=== PATIENT | female | born 1970 | race Caucasian/White ===

== ENCOUNTER 2022-11-12 01:48 | Observation (INO) ==
[2022-11-12] MEDS ORDERED: ONDANSETRON INJ 2 MG/ML 2 ML VIAL IV STA ×2 (02:20→04:47)
[2022-11-12] MEDS ORDERED: FAMOTIDINE 20MG/5ML IV PUSH IV ONE (02:20)
[2022-11-12] MEDS ORDERED: FAMOTIDINE 20 MG in SYRINGE 3 ML IV ONE (02:20)
[2022-11-12] MEDS: SODIUM CHLORIDE 0.9% 1000ML 1,000 ML IV SCH ×2 (02:31→07:28)
[2022-11-12 02:33] LABS: Basophils # (auto) 0.03 K/uL (0-0.2); Basophils % (auto) 0.4 %; Eosinophils # (auto) 0.02 K/uL (0-0.50); Eosinophils % (auto) 0.3 %; Hematocrit (blood only) 42.4 % (37.0-47.0); Hemoglobin 14.5 g/dl (12.0-16.0); Immature Granulocytes # (auto) 0.01 K/uL (0.01-0.20); Immature Granulocytes % (auto) 0.1 %; Lymphocytes # (auto) 1.63 K/uL (1.2-3.4); Lymphocytes % (auto) 23.3 %; Mean Corpuscular Hgb Conc 34.2 g/dL (32.0-36.0); Mean Corpuscular Volume 87.6 fL (80.0-100.0); Mean Platelet Volume 9.9 fL (9.4-12.4); Monocytes # (auto) 0.51 K/uL (0.11-0.59); Monocytes % (auto) 7.3 %; Neutrophils # (auto) 4.79 K/uL (1.40-6.50); Neutrophils % (auto) 68.6 %; Platelet Count 319 K/uL (130-400); RDW Coefficient of Variation 12.2 % (11.5-14.5); RDW Standard Deviation 39.1 fL (36.4-46.3); Red Blood Count 4.84 M/uL (4.20-5.40); White Blood Count 6.99 K/ul (4.8-10.8)
[2022-11-12] MEDS ORDERED: FAMOTIDINE 20MG IV PUSH 20 MG/5 ML SYR IV STA (02:59)
[2022-11-12] MEDS ORDERED: ACETAMINOPHEN 1,000 MG/100 ML VIAL IV STA (02:59)
[2022-11-12] MEDS ORDERED: fentaNYL citrate 100 MCG/2 ML VIAL IV STA (02:59)
[2022-11-12 03:03] LABS: Troponin I High Sensitivity 17.9 pg/ml (0-14)
[2022-11-12 03:08] LABS: Thyroid Stimulating Hormone 5.507 uIu/ml (0.300-4.500)
[2022-11-12 03:11] LABS: Albumin Level 4.9 gm/dl (3.4-5.0); Bilirubin,Total 0.8 mg/dl (0.2-1.0); Calcium 9.9 mg/dl (8.5-10.1); Potassium 3.3 mmol/L (3.5-5.1)
[2022-11-12 03:17] LABS: Albumin Globulin Ratio 1.2 (0.9-2); BUN Creatinine Ratio 14.3 (10-20); Creatinine Clr Calc Pharmacy 77.5 ml/min; Est GFR (African American) 103.6 ml/min; Est GFR (Non-African American) 89.4 ml/min; Globulin 4.2 gm/dl (2.5-4.0); Total Protein 9.1 gm/dl (6.0-8.3)
[2022-11-12] MEDS ORDERED: POTASSIUM CHLORIDE CRTAB 20 MEQ TABCR PO STA (03:21)
[2022-11-12 03:54] LABS: T4 Free Thyroxine 0.88 ng/dl (0.61-1.60)
[2022-11-12] MEDS ORDERED: LABETALOL HCL IV 5 MG/ML 20ML IV STA (04:10)
--- NOTE | 2022-11-12 04:10 | Emergency Department Note ---
Impression & Plan Chest pain, Nausea & vomiting, Elevated troponin, Abnormal ECG, Hypertension ED Provider Note ED Provider Note NAME: MAIN MARTINEZ AGE:52 SEX: Female : 1970 ARRIVES VIA: Private vehicle INFORMANT: Patient ED PROVIDER(s): Lucila Bishop DO CHIEF COMPLAINT: Nausea and vomiting, chest pain HPI: This is a 52-year-old female presents emergency department with concern for nausea and vomiting as well as chest pain. Patient states symptoms have been going on intermittently over the course of the last month. She states she has not been able to pinpoint any pattern to the nausea or vomiting. She states she does not vomit every time she gets nauseated. No recent change in diet, no new medications, no known sick contacts. She states yesterday for nausea vomiting seem more persistent and she also had accompanying diarrhea. No black or bloody stools. Patient also notes she has had intermittent chest heaviness/pain. She states the pain is nonradiating. She states she notices the pain with exertion and activity. She denies any coming shortness of breath, diaphoresis, or dizziness. No prior heart history. Patient is a remote smoker. No family history of young onset CAD. Patient currently does not have a family doctor. No prior cardiac evaluation. Patient denies any abdominal pain at this time. She did take ibuprofen prior to arrival. PAST MEDICAL HISTORY:See Below PAST SURGICAL HISTORY:See Below FAMILY HISTORY:See Below SOCIAL HISTORY:See Below HOME MEDICATIONS:See Below ALLERGIES:See Below VITALS:See Below PHYSICAL EXAMINATION: GENERAL: alert, well appearing, well nourished, no distress, non-toxic EYE EXAM: normal conjunctiva, PERRL and EOM's grossly intact OROPHARYNX: no exudate, no erythema, lips, buccal mucosa, and tongue normal and mucous membranes are moist NECK: supple, no nuchal rigidity, no adenopathy, non-tender LUNGS: Clear to auscultation. Normal chest wall mechanics, no w/r/r HEART: no murmurs, S1 normal and S2 normal ABDOMEN: abdomen soft, non-tender, normo-active bowel sounds, no masses, no rebound or guarding. BACK: Back is symmetrical on inspection and there is no deformity, no midline tenderness, no CVA tenderness. SKIN: no rashes, petechiae, orbruising UPPER EXTREMITIES: upper extremities are grossly normal. FROM, nml pulses b/l. LOWER EXTREMITIES: No pitting edema. FROM, nml pulses b/l. NEURO EXAM: Normal sensorium, cranial nerves II-XII grossly intact, normal speech, no facial droop,nogross weakness of arms, no gross weakness of legs. Gross sensation intact. No ataxia. Vital Signs: reviewed and remarkable Differential Diagnosis: MEDICAL DECISION MAKING: This is a 52-year-old female who presents to the emergency department with concerning story for 1 month of intermittent nausea and vomiting and chest pain. Patient had chest pain at bedside and did feel persistently nauseated. Labs drawn and sent, IV established, EKG performed and interpreted by me and was concerning for subtle ST depression and T wave inversions. Chest x-ray abdominal x-ray performed and interpreted by me additionally without any obvious pathology. Patient given IV Zofran, IV Tylenol, IV fentanyl, and IV Pepcid with improvement in her symptoms. Repeat EKG still showed persistent ST depression and T wave inversions and patient's troponin mildly elevated. Mild hypokalemia was noted and this was repleted at bedside. Patient had no abdominal pain on initial and repeat exams. No ectopy or dysrhythmia noted on telemetry. I discussed all results with patient at bedside as well as my concern for her abnormal EKG with no priors for comparison and mildly elevated troponin. Patient does admit that chest heaviness/pressure she is felt has been exertional. Patient is a reformed smoker, no other family history of early onset CAD. Due to concerning changes and history, I discussed the case with hospitalist for additional inpatient evaluation and management. Patient was aware of all results and verbalized understanding. She was in agreement with the plan. Patient was also noted to be hypertensive with persistent borderline tachycardia, even when her symptoms had resolved. Patient given I will review the labetalol with improvement. Consultation(s): 0435: Discussed with Dr. Fountain for admission. ER Treatment Provided: See below Diagnostics Interpreted By Me: -ECG: Normal sinus at 98, normal axis, normal intervals, ST depression noted in 1, aVL, V5 and V6, inverted T waves noted in 3, aVF; repeat EKG is normal sinus rhythm at 87, normal QRS and QTc, normal axis, similar ST depressions and inverted T waves again noted. -Cardiac Monitoring: An order was placed for continuous cardiac monitoring. The monitor shows a rate of 96 with normal sinus rhythm. -Laboratory studies: As stated above and show below. -Imaging studies: X-ray:Chest: A single view study of the chest was reviewed and was negative for cardiomegaly, focal infiltrate, effusion, pulmonary edema, or wide mediastinum. KUB: no obvious SBO or free air Triage Nursing Note Reviewed Prior/Outside Records Reviewed Procedures: [] Critical Care: [] Past Med/Surg History Social History Smoking Status: Never smoker Hx Alcohol Use: No Hx Substance Use: No Preferred Language: [place] Wel[employer] Apprentice Required: No Beliefs That Will Affect Care: None Current Living Situation: Spouse Other Information That Helps Us Care for You: No Feels Safe at Home: Yes Safety Concerns: Feels Safe At This Time Assistive Devices: None Allergies Allergies Allergy/AdvReac Type Severity Reaction Status Date / Time No Known Allergies Allergy Verified 11/12/22 02:10 Home Meds Home Medications Medication Instructions Recorded Confirmed ibuprofen 200 mg tablet (Motrin IB) 400 mg PO DIRECTED PRN Pain 11/12/22 11/12/22 Previous Rx's Medication Instructions Recorded aspirin 81 mg tablet,delayed 81 mg PO QAM #30 tabs 11/12/22 release buspirone 5 mg tablet 5 mg PO BID #60 tabs 11/12/22 carvedilol 3.125 mg tablet 3.125 mg PO BID #60 tabs 11/12/22 lisinopril 5 mg tablet (Zestril) 5 mg PO QAM #30 tabs 11/12/22 Results & Data (ED) Vital Signs Vital Signs - 24 hr 11/12/22 01:54 11/12/22 02:04 11/12/22 03:00 Temperature 36.3 C L Temperature Source Temporal Artery Scan Pulse Rate 116 H 96 H 87 Pulse Rate from SpO2 Sensor 89 Respiratory Rate 18 14 Respiratory Effort / Characteristics Non-Labored Spontaneous Respiratory Depth Normal Respiratory Pattern Regular Blood Pressure 188/103 H 174/102 H Blood Pressure Mean 131 126 Blood Pressure Position Sitting Pulse Oximetry 96 97 Oxygen Delivery Method Room Air Sepsis Recent Fever Within 48 Hours No Sepsis New/Unexplained Change in Mental Status N/A Sepsis Action Taken by Nursing No Action Required 11/12/22 03:15 11/12/22 03:30 11/12/22 04:00 Temperature Temperature Source Pulse Rate 81 89 101 H Pulse Rate from SpO2 Sensor 82 88 100 H Respiratory Rate 12 12 14 Respiratory Effort / Characteristics Respiratory Depth Respiratory Pattern Blood Pressure 158/105 H 148/101 H 180/112 H Blood Pressure Mean 122 116 134 Blood Pressure Position Pulse Oximetry 96 97 98 Oxygen Delivery Method Sepsis Recent Fever Within 48 Hours Sepsis New/Unexplained Change in Mental Status Sepsis Action Taken by Nursing 11/12/22 04:30 11/12/22 04:45 11/12/22 05:00 Temperature Temperature Source Pulse Rate 79 Pulse Rate from SpO2 Sensor 93 H 79 Respiratory Rate 14 Respiratory Effort / Characteristics Respiratory Depth Respiratory Pattern Blood Pressure 182/112 H 138/87 137/96 Blood Pressure Mean 135 104 109 Blood Pressure Position Pulse Oximetry 98 96 Oxygen Delivery Method Sepsis Recent Fever Within 48 Hours Sepsis New/Unexplained Change in Mental Status Sepsis Action Taken by Nursing 11/12/22 05:00 11/12/22 05:15 11/12/22 05:15 Temperature Temperature Source Pulse Rate 77 77 Pulse Rate from SpO2 Sensor 77 79 Respiratory Rate 17 12 Respiratory Effort / Characteristics Respiratory Depth Respiratory Pattern Blood Pressure 149/99 H Blood Pressure Mean 115 Blood Pressure Position Pulse Oximetry 97 96 Oxygen Delivery Method Sepsis Recent Fever Within 48 Hours Sepsis New/Unexplained Change in Mental Status Sepsis Action Taken by Nursing Laboratory Data 11/12/22 02:10 11/12/22 02:10 Lab Results 11/12/22 11/12/22 11/12/22 Range/Units 02:10 02:10 02:10 WBC 6.99 (4.8-10.8) K/ul RBC 4.84 (4.20-5.40) M/uL Hgb 14.5 (12.0-16.0) g/dl Hct 42.4 (37.0-47.0) % MCV 87.6 (80.0-100.0) fL MCH 30.0 (25.0-34.0) pg MCHC 34.2 (32.0-36.0) g/dL RDW Std Deviation 39.1 (36.4-46.3) fL RDW Coeff of David 12.2 (11.5-14.5) % Plt Count 319 (130-400) K/uL MPV 9.9 (9.4-12.4) fL Immature Gran % (Auto) 0.1 % Neut % (Auto) 68.6 % Lymph % (Auto) 23.3 % [place] % (Auto) 7.3 % Eos % (Auto) 0.3 % Baso % (Auto) 0.4 % Neut # (Auto) 4.79 (1.40-6.50) K/uL Lymph # (Auto) 1.63 (1.2-3.4) K/uL [place] # (Auto) 0.51 (0.11-0.59) K/uL Eos # (Auto) 0.02 (0-0.50) K/uL Baso # (Auto) 0.03 (0-0.2) K/uL Immature Gran # (Auto) 0.01 (0.01-0.20) K/uL Sodium 137 (136-145) mmol/L Potassium 3.3 L (3.5-5.1) mmol/L Chloride 103 (98-107) mmol/L Carbon Dioxide 23 (21-32) mmol/L Anion Gap 11 (3-11) BUN 11 (6-23) mg/dl Creatinine 0.77 (0.6-1.2) mg/dl Est Cr Clr Drug Dosing 77.5 ml/min Est GFR ( Amer) 103.6 ml/min Est GFR (Non-Af Amer) 89.4 ml/min BUN/Creatinine Ratio 14.3 (10-20) Glucose 183 H (70-99(Fasting)) mg/dl Calcium 9.9 (8.5-10.1) mg/dl Magnesium 2.0 (1.7-2.4) mg/dl Total Bilirubin 0.8 (0.2-1.0) mg/dl AST 15 (13-39) U/L ALT 14 (7-52) U/L Alkaline Phosphatase 87 (34-104) U/L Troponin I High Sens 17.9 H (0-14) pg/ml Total Protein 9.1 H (6.0-8.3) gm/dl Albumin 4.9 (3.4-5.0) gm/dl Globulin 4.2 H (2.5-4.0) gm/dl Albumin/Globulin Ratio 1.2 (0.9-2) Lipase 14 (11-82) U/L TSH 5.507 H (0.300-4.500) uIu/ml Free T4 0.88 (0.61-1.60) ng/dl SARS-CoV-2 (PCR) (Negative) Influenza Type A (PCR) (Neg) Influenza Type B (PCR) (Neg) RSV (RT-PCR) (Neg) 11/12/22 Range/Units 04:20 WBC (4.8-10.8) K/ul RBC (4.20-5.40) M/uL Hgb (12.0-16.0) g/dl Hct (37.0-47.0) % MCV (80.0-100.0) fL MCH (25.0-34.0) pg MCHC (32.0-36.0) g/dL RDW Std Deviation (36.4-46.3) fL RDW Coeff of David (11.5-14.5) % Plt Count (130-400) K/uL MPV (9.4-12.4) fL Immature Gran % (Auto) % Neut % (Auto) % Lymph % (Auto) % [place] % (Auto) % Eos % (Auto) % Baso % (Auto) % Neut # (Auto) (1.40-6.50) K/uL Lymph # (Auto) (1.2-3.4) K/uL [place] # (Auto) (0.11-0.59) K/uL Eos # (Auto) (0-0.50) K/uL Baso # (Auto) (0-0.2) K/uL Immature Gran # (Auto) (0.01-0.20) K/uL Sodium (136-145) mmol/L Potassium (3.5-5.1) mmol/L Chloride (98-107) mmol/L Carbon Dioxide (21-32) mmol/L Anion Gap (3-11) BUN (6-23) mg/dl Creatinine (0.6-1.2) mg/dl Est Cr Clr Drug Dosing ml/min Est GFR ( Amer) ml/min Est GFR (Non-Af Amer) ml/min BUN/Creatinine Ratio (10-20) Glucose (70-99(Fasting)) mg/dl Calcium (8.5-10.1) mg/dl Magnesium (1.7-2.4) mg/dl Total Bilirubin (0.2-1.0) mg/dl AST (13-39) U/L ALT (7-52) U/L Alkaline Phosphatase (34-104) U/L Troponin I High Sens (0-14) pg/ml Total Protein (6.0-8.3) gm/dl Albumin (3.4-5.0) gm/dl Globulin (2.5-4.0) gm/dl Albumin/Globulin Ratio (0.9-2) Lipase (11-82) U/L TSH (0.300-4.500) uIu/ml Free T4 (0.61-1.60) ng/dl SARS-CoV-2 (PCR) NEGATIVE (Negative) Influenza Type A (PCR) Negative (Neg) Influenza Type B (PCR) Negative (Neg) RSV (RT-PCR) Negative (Neg) Administered Medications Discontinued Medications Aspirin (Aspirin 81 Mg Ectab) 81 mg PO QAM [facility] Stop: 12/12/22 09:59 Last Admin: 11/12/22 11:56 Dose: 81 mg Documented By: SO Atropine Sulfate (Atropine Sulfate 0.1 Mg/Ml 10ml Syr) Confirm Administered Dose 2 mg IV .STK-MED ONE Stop: 11/12/22 10:43 Last Admin: 11/12/22 12:35 Dose: Not Given Documented By: VÍCTOR Dobutamine HCl (Dobutamine Hcl 12.5 Mg/Ml 20 Ml Vial) Confirm Administered Dose 250 mg IV .STK-MED ONE Stop: 11/12/22 10:44 Last Admin: 11/12/22 12:35 Dose: 1 dose Documented By: VÍCTOR Famotidine (Famotidine 20mg/5ml Iv Push) 20 mg IV NOW ONE Stop: 11/12/22 02:21 Last Admin: 11/12/22 02:37 Dose: 20 mg Documented By: JACQUE Fentanyl Citrate (Fentanyl Citrate 100 Mcg/2 Ml Vial) 50 mcg IV NOW STA Stop: 11/12/22 03:00 Last Admin: 11/12/22 03:08 Dose: 50 mcg Documented By: JAGDEEP Sodium Chloride (Nss 1000ml) 1,000 mls @ 250 mls/hr IV .Q4H MARY Stop: 12/12/22 02:29 Last Admin: 11/12/22 07:28 Dose: Not Given Documented By: Infusion: 11/12/22 06:51 Dose: 0 mls/hr Documented By: Admin: 11/12/22 02:31 Dose: 250 mls/hr Documented By: JACQUE Acetaminophen (Ofirmev) 1,000 mg in 100 mls @ 400 mls/hr IV NOW STA Stop: 11/12/22 03:13 Last Infusion: 11/12/22 03:43 Dose: 0 mls/hr Documented By: Admin: 11/12/22 03:08 Dose: 400 mls/hr Documented By: JAGDEEP Famotidine (Pepcid 20mg Iv Push) 20 mg in 5 mls @ 2.5 mls/min IV NOW STA Stop: 11/12/22 03:00 Last Admin: 11/12/22 03:08 Dose: Not Given Documented By: JAGDEEP Sodium Chloride (Nss 1000ml) 1,000 mls @ 80 mls/hr IV .[id number] [facility] Stop: 11/12/22 19:55 Last Admin: 11/12/22 08:17 Dose: 80 mls/hr Documented By: SO Labetalol HCl (Labetalol Hcl Iv 5 Mg/Ml 20ml) 10 mg IV NOW STA Stop: 11/12/22 04:11 Last Admin: 11/12/22 04:38 Dose: 10 mg Documented By: JAGDEEP Co-signed By: FALLON Lisinopril (L[facility]opril 5 Mg Tab) [facility] [place] Stop: 12/12/22 09:59 Last Admin: 11/12/22 11:56 Dose: 5 mg Documented By: SO Metoprolol Tartrate (Metoprolol Tartrate 1 Mg/Ml Vial) Confirm Administered Dose 10 mg IV .STK-MED [facility] Stop: 11/12/22 10:44 Last Admin: 11/12/22 12:36 Dose: 5 mg Documented By: VÍCTOR Ondansetron HCl (Ondansetron Inj 2 Mg/Ml 2 Ml Vial) 4 mg IV NOW STA Stop: 11/12/22 02:21 Last Admin: 11/12/22 02:31 Dose: 4 mg Documented By: JACQUE Ondansetron HCl (Ondansetron Inj 2 Mg/Ml 2 Ml Vial) 4 mg IV NOW STA Stop: 11/12/22 04:48 Last Admin: 11/12/22 04:54 Dose: 4 mg Documented By: JAGDEEP Potassium Chloride (Potassium Chloride Crtab 20 Meq Tabcr) 40 meq PO NOW STA Stop: 11/12/22 03:22 Last Admin: 11/12/22 03:52 Dose: 40 meq Documented By: BS Discharge Plan Visit Data Chief Complaint: Vomiting Stated Complaint: HEAVINESS ON CHEST,COUGH,VOMITING,DIARRHEA ED Provider: Lucila Bishop Discharge Problem: Chest pain, Nausea & vomiting, Elevated troponin, Abnormal ECG, Hypertension Patient Disposition: Admitted As Inpatient Discharge Instructions Interventions: ED Discharge Assessment Last Done: 11/12/22 07:43
[2022-11-12 05:20] LABS: Influenza A virus by PCR Negative (Neg); Influenza B virus by PCR Negative (Neg); RSV by PCR Negative (Neg); SARS CoV2 RNA(COVID-19) Ceph NEGATIVE (Negative)
--- NOTE | 2022-11-12 07:09 | History and Physical Report ---
DATE OF ADMISSION: 11/12/2022. CHIEF COMPLAINT: Nausea and also chest pain. HISTORY OF PRESENT ILLNESS: A 52-year-old female with no significant past medical history who presents with chest pain going on since last 1 month. The chest pain comes in the morning when she wakes up, going to work, and by afternoon subsides and again some days also it comes in the nighttime. No radiation, pressure-like feeling, moderate in severity. No sweating, no shortness of breath.Pain is associated with nausea. Last Wednesday night she had two to three episodes of diarrhea. Diarrhea seems to be improving. She still has some mild chest discomfort currently. Denies any headache. No blurred visions, no earache, no runny nose, no sore throat, no cough, no fevers, no difficulty swallowing. No abdominal pain. Normal bladder movements. No swelling in the legs. ALLERGIES: No known drug allergies. PAST MEDICAL HISTORY: No significant past medical history. PAST SURGICAL HISTORY: Ligation of the tubes. MEDICATIONS: None. FAMILY HISTORY: Significant for mother had heart attack at age of 65; mom and dad had diabetes. SOCIAL HISTORY: Quit smoking 30 years ago, smoked for a couple of years. Alcohol occasional. REVIEW OF SYSTEMS: As per HPI. Rest of review of systems is negative. PHYSICAL EXAMINATION: GENERAL: The patient is of moderate build, not in acute distress. VITAL SIGNS: Temperature 36.3, pulse 79, respiratory rate 14, blood pressure 138/87, when she came in blood pressure was 188/103, oxygen 96% on room air. HEENT: Pupils equal, round and reactive to light. Oral mucosa moist. NECK: No JVD. No neck masses. CARDIOVASCULAR: S1 and S2 heard. Regular rate and rhythm. No murmur, no gallop. RESPIRATORY SYSTEM: Normal AP diameter. No accessory muscle use. No wheezing or crackles. ABDOMEN: Soft, bowel sounds present, nontender, no distention. CENTRAL NERVOUS SYSTEM: Cranial nerves II through XII grossly intact, nonfocal. EXTREMITIES: No edema, no erythema. LABORATORY DATA: WBC 6.9, hemoglobin 14.5, hematocrit 42.4, platelets 319. Sodium 137, potassium 3.3, chloride 103, bicarbonate 23, BUN 11, creatinine 0.7, serum glucose 183, calcium 9.9, magnesium 2, total bilirubin 0.8, AST 15, ALT 14, alkaline phosphatase 87. Troponin I high sensitivity 17.9, lipase 14, TSH 5.5, free T4 of 0.8. SARS-CoV-2 PCR negative. Influenza A and B PCR negative. RSV PCR negative. IMAGING DATA: Chest and abdominal x-ray results are pending. EKG: Shows normal sinus rhythm at a rate of 98, possible left atrial enlargement, nonspecific ST changes.ST depressions in leads V5 and V6. ASSESSMENT AND PLAN: This is a 52-year-old female who presents with chest pain, also nausea, vomiting, diarrhea. 1. Chest pain: Going on for last 1 month on and off. Mild elevation of troponin to 17.9. EKG done showed ST depression in leads V5, V6. Will monitor the serial cardiac enzymes, repeat EKG. Will keep her n.p.o. Follow the echocardiogram. Monitor in the tele floor. Consult cardiology for further recommendations. 2. Nausea, vomiting, diarrhea: Diarrhea has seemed to improve. Possibly gastroenteritis. Getting gentle fluids. Will monitor. 3. Hypertension: Could be situational. When she came in, blood pressure was high. Received a dose of labetalol. Currently seems okay. Will place on Coreg 3.125 p.o. b.i.d. p.r.n. Will follow the echocardiogram. If persistently high, may need antihypertensives at the time of discharge. 4. Hyperglycemia: Glucose of 183. Will follow the HbA1c levels. Will also follow the lipid panel. 5. Deep venous thrombosis prophylaxis: Sequential compression devices for now. DISPOSITION: Observation in [facility]. PT/OT prior to discharge. Social service to help with discharge planning. Job ID: [id number] [facility]
[2022-11-12] MEDS ORDERED: ACETAMINOPHEN 325 MG TAB PO PRN (07:26)
[2022-11-12] MEDS ORDERED: NITROGLYCERIN SL 0.4 MG/TAB TAB SL PRN (07:26)
[2022-11-12] MEDS ORDERED: ONDANSETRON INJ 2 MG/ML 2 ML VIAL IV PRN (07:26)
[2022-11-12] MEDS ORDERED: SODIUM CHLORIDE 0.9% 1000ML 1,000 ML IV SCH (07:26)
[2022-11-12] MEDS ORDERED: POLYETHYLENE (MIRALAX) 17 GM PACK PO PRN (07:26)
[2022-11-12] MEDS ORDERED: carvediloL 3.125 MG TAB PO PRN (07:26)
--- NOTE | 2022-11-12 07:27 | XRay Report ---
XR abdomen 2V w PA chest HISTORY: 52 years-old Female n/v, chest pain . Nodular and vomiting with chest pain COMPARISON: None TECHNIQUE: PA view of the chest with erect and supine views of the abdomen FINDINGS: Cardiomediastinal and hilar silhouettes are within normal limits. No pneumothorax, pleural effusion, airspace consolidation or pulmonary edema. Bones of the chest appear grossly intact. No urolith identified. Nonobstructive bowel gas pattern. No pneumatosis or pneumoperitoneum. IMPRESSION: 1. No acute processes of the chest. 2. Nonobstructive bowel gas pattern. ACT 112: Negative or not required by law. The above report was generated using voice recognition software. It may contain grammatical, syntax o r spelling errors. Electronically signed by: Haris Gleason M.D. 11/12/2022 7:26 AM
[2022-11-12 08:33] LABS: Basophils # (auto) 0.02 K/uL (0-0.2); Basophils % (auto) 0.3 %; Hematocrit (blood only) 38.8 % (37.0-47.0); Immature Granulocytes # (auto) 0.02 K/uL (0.01-0.20); Immature Granulocytes % (auto) 0.3 %; Lymphocytes # (auto) 1.13 K/uL (1.2-3.4); Lymphocytes % (auto) 15.9 %; Mean Corpuscular Hemoglobin 29.7 pg (25.0-34.0); Mean Corpuscular Hgb Conc 33.5 g/dL (32.0-36.0); Mean Corpuscular Volume 88.8 fL (80.0-100.0); Monocytes # (auto) 0.35 K/uL (0.11-0.59); Monocytes % (auto) 4.9 %; Neutrophils # (auto) 5.58 K/uL (1.40-6.50); Neutrophils % (auto) 78.6 %; Platelet Count 317 K/uL (130-400); RDW Coefficient of Variation 12.3 % (11.5-14.5); Red Blood Count 4.37 M/uL (4.20-5.40)
[2022-11-12 08:36] LABS: BUN Creatinine Ratio 11.8 (10-20); Calcium 9.4 mg/dl (8.5-10.1); Chol HDL Ratio 2.8 (0-5); Creatinine Clr Calc Pharmacy 87.7 ml/min; Est GFR (African American) 117.4 ml/min; Est GFR (Non-African American) 101.3 ml/min; Magnesium 2.2 mg/dl (1.7-2.4); Potassium 3.7 mmol/L (3.5-5.1)
--- NOTE | 2022-11-12 08:36 | Cardiology Consultation ---
Date of Consultation November 12, 2022 Assessment & Plan (1) Chest pain: (2) Abnormal ECG: (3) Hypertension: Plan Patient with no significant past medical history admitted for 1 month of waxing/waning chest pain. HS troponin minimally elevated at 17 and flat x 2. EKG with inferior and lateral ST/T wave abnormality, but no prior EKG for comparison. Her BP was elevated on arrival and treated with SL nitro and labetalol on arrival. BP trending down this morning but remains slightly elevated. start lisinopril 5 mg daily given borderline elevated A1C and hypertension. Start ASA 81 mg daily Consider statin. Resting echo was done and results pending. Recommend proceeding with dobutamine stress echo to evaluate and r/o inducible ischemia contributing to her chest pain. Patient is agreeable. Remain NPO this morning. Case discussed with Dr. Metz. Further recommendations pending review of echo/dobutamine and response to antihypertensive therapy Supervising Physician Co-Signing Physician Notes I have reviewed the advance practitioner documentation and agree. I saw and evaluated the patient on the date of service referenced in the note and have performed a medically appropriate history and or exam. The patient had a negative dobutamine stress test this morning. I do not believe any additional cardiac testing is indicated. The patient can be discharged per the hospitalist service. History of Present Illness Reason for Consultation: Chest pain; abnormal EKG Requesting Physician: Dr. Fountain Attending Physician: Dr. Metz History of Present Illness Patient is a 52 year old female with no significant past medical history and takes no medications on a regular basis. Over the last month, patient reports intermittent chest pain, described as a dull ache in the center of her chest. She often awakens with her symptoms in the morning and will last most of the day. Symptoms come and go randomly. No radiation or associated symptoms of SOB, diaphoresis, dizziness. Yesterday she felt her symptoms were worse, 7/10 and she developed significant diarrhea, so she came to the ER for evaluation. On admission, EKG demonstrated NSR with mild T wave abnormality in inferior and lateral leads. No comparison EKG available in inpatient/outpatient records. She was treated with SL nitro but no significant improvement. Her BP was elevated on arrival and treated with labetalol. HS troponin at 17 and repeat flat at 17. Repeat EKG this morning with similar findings and ST/T wave abnormality in inferior and lateral leads. At time of consult, BP trending down. She still has 4/10 substernal chest tightness, but appears in no acute distress. No significant elevation in HS troponin despite ongoing discomfort. Allergies Allergy/AdvReac Type Severity Reaction Status Date / Time No Known Allergies Allergy Verified 11/12/22 02:10 Home Medications Medication Instructions Recorded Confirmed Type ibuprofen 200 mg tablet (Motrin IB) 400 mg PO DIRECTED PRN Pain 11/12/22 11/12/22 History Patient History Social History Smoking Status: Never smoker Hx Alcohol Use: No Hx Substance Use: No Preferred Language: Spanish Print Manager Required: No Beliefs That Will Affect Care: None Current Living Situation: Spouse Other Information That Helps Us Care for You: No Feels Safe at Home: Yes Safety Concerns: Feels Safe At This Time Assistive Devices: None Review of Systems Review of Systems: All systems reviewed & are unremarkable except as noted in HPI & below Physical Exam Constitutional: WD/WN, vitals as above no acute distress Neck: trachea midline, no thyromegaly Respiratory: normal respiratory effort; no labored breathing Auscultation: lungs clear to auscultation bilaterally Cardiovascular: Rate/Rhythm: regular rate and regular rhythm Heart Sounds: normal S1 and normal S2; no murmur Vessels: no JVD Extremities: no edema Gastrointestinal (Abdomen): normal bowel sounds, soft, nontender, no hepatosplenomegaly Skin: no rashes, warm and dry Neurologic: PERRL, EOMI, accommodation nl, no face palsy, no dysarthria Results & Data ([facility]) Vital Signs (Past 12 Hours) Vital Signs Temp Pulse Pulse Resp BP BP Pulse Ox 11/12/22 07:42 37.0 C 81 16 148/96 H 96 11/12/22 07:00 115 H 16 178/92 H 96 11/12/22 06:15 68 11 L 141/99 H 97 11/12/22 06:00 74 13 156/99 H 97 11/12/22 05:45 82 9 L 146/94 H 97 11/12/22 05:30 79 9 L 146/99 H 97 11/12/22 05:15 149/99 H 11/12/22 05:15 77 12 96 11/12/22 05:00 77 17 97 11/12/22 05:00 137/96 11/12/22 06:01 78 03/23 04:45 79 14 138/87 96 11/12/22 04:30 182/112 H 98 11/12/22 04:00 101 H 14 180/112 H 98 11/12/22 03:30 89 12 148/101 H 97 11/12/22 03:15 81 12 158/105 H 96 11/12/22 03:00 87 14 174/102 H 97 11/12/22 02:04 96 H 11/12/22 01:54 36.3 C L 116 H 18 188/103 H 96 O2 Del Method 11/12/22 07:42 Room Air 11/12/22 07:00 11/12/22 06:15 11/12/22 06:00 11/12/22 05:45 11/12/22 05:30 11/12/22 05:15 11/12/22 05:15 11/12/22 05:00 11/12/22 05:00 11/12/22 06:01 11/12/22 04:45 11/12/22 04:30 11/12/22 04:00 11/12/22 03:30 11/12/22 03:15 11/12/22 03:00 11/12/22 02:04 11/12/22 01:54 Room Air Laboratory Results Cardiac Enzymes 11/12/22 Range/Units 02:10 AST 15 (13-39) U/L Troponin I High Sens 17.9 H (0-14) pg/ml CBC 11/12/22 11/12/22 Range/Units 02:10 07:31 WBC 6.99 7.10 (4.8-10.8) K/ul RBC 4.84 4.37 (4.20-5.40) M/uL Hgb 14.5 13.0 (12.0-16.0) g/dl Hct 42.4 38.8 (37.0-47.0) % Plt Count 319 317 (130-400) K/uL Neut # (Auto) 4.79 5.58 (1.40-6.50) K/uL Lymph # (Auto) 1.63 1.13 L (1.2-3.4) K/uL [place] # (Auto) 0.51 0.35 (0.11-0.59) K/uL Eos # (Auto) 0.02 0.00 (0-0.50) K/uL Baso # (Auto) 0.03 0.02 (0-0.2) K/uL Comprehensive Metabolic Panel 11/12/22 Range/Units 02:10 Sodium 137 (136-145) mmol/L Potassium 3.3 L (3.5-5.1) mmol/L Chloride 103 (98-107) mmol/L Carbon Dioxide 23 (21-32) mmol/L BUN 11 (6-23) mg/dl Creatinine 0.77 (0.6-1.2) mg/dl Glucose 183 H (70-99(Fasting)) mg/dl Calcium 9.9 (8.5-10.1) mg/dl AST 15 (13-39) U/L ALT 14 (7-52) U/L Alkaline Phosphatase 87 (34-104) U/L Total Protein 9.1 H (6.0-8.3) gm/dl Albumin 4.9 (3.4-5.0) gm/dl Intake and Output 11/11/22 11/12/22 11/12/22 22:59 06:59 14:59 Intake Total 1100 / 1100 Balance 1100 / 1100 Intake: IV 1100 / 1100 Acetaminophen 1,000 mg In 100 100 / 100 ml @ 400 mls/hr IV NOW STA Rx#: [id number] Sodium Chloride 0.9% 1000ML 1, 1000 / 1000 000 ml @ 250 mls/hr IV .Q4H [facility] Rx#:[id number] Other: Weight 63.3 kg Weight Measurement Method Chair Scale Diagnostic Findings Telemetry reviewed: NSR in the 80's. EKG on admission 11/12/22: NSR with T wave inversion in III, AVF and ST depression in V5-V6. Repeat EKG 11/12/22: NSR with ongoing T wave abnormalities in inferior and lateral leads Chest/Abdomen X-ray 11/12/22 02:20 XR abdomen 2V w PA chest HISTORY: 52 years-old Female n/v, chest pain . Nodular and vomiting with chest pain COMPARISON: None TECHNIQUE: PA view of the chest with erect and supine views of the abdomen FINDINGS: Cardiomediastinal and hilar silhouettes are within normal limits. No pneumothorax, pleural effusion, airspace consolidation or pulmonary edema. Bones of the chest appear grossly intact. No urolith identified. Nonobstructive bowel gas pattern. No pneumatosis or pneumoperitoneum. IMPRESSION: 1. No acute processes of the chest. 2. Nonobstructive bowel gas pattern. ACT 112: Negative or not required by law. The above report was generated using voice recognition software. It may contain grammatical, syntax or spelling errors. Electronically signed by: Haris Gleason M.D. 11/12/2022 7:26 AM Medications Administered Current Inpatient Medications Acetaminophen (Acetaminophen 325 Mg Tab) 650 mg PO Q4H PRN PRN Reason: Pain or Fever Stop: 12/12/22 07:25 Aspirin (Aspirin 81 Mg Ectab) 81 mg PO QAM [facility] Stop: 12/12/22 09:59 Carvedilol (Carvedilol 3.125 Mg Tab) 3.125 mg PO BID PRN PRN Reason: Hypertension Stop: 12/12/22 07:25 Sodium Chloride (Nss 1000ml) 1,000 mls @ 80 mls/hr IV .[id number] [facility] Stop: 11/12/22 19:55 Last Admin: 11/12/22 08:17 Dose: 80 mls/hr Lisinopril (Lisinopril 5 Mg Tab) 5 mg PO QAM [facility] Stop: 12/12/22 09:59 Nitroglycerin (Nitroglycerin Sl 0.4 Mg/Tab Tab) 0.4 mg SL UD PRN PRN Reason: Chest Pain Stop: 12/12/22 07:25 Ondansetron HCl (Ondansetron Inj 2 Mg/Ml 2 Ml Vial) 4 mg IV Q6H PRN PRN Reason: Nausea Stop: 12/12/22 07:25 Polyethylene Glycol (Polyethylene (Miralax) 17 Gm Pack) 17 gm PO DAILY PRN PRN Reason: Constipation Stop: 12/12/22 07:25
[2022-11-12 08:43] LABS: Troponin I High Sensitivity 17.1 pg/ml (0-14)
[2022-11-12 10:00] LABS: Estimated Average Glucose 117 mg/dl; Hemoglobin A1C 5.7 % (4.5-5.6)
[2022-11-12] MEDS ORDERED: ASPIRIN 81 MG ECTAB PO SCH (10:00)
[2022-11-12] MEDS ORDERED: lisinopril 5 MG TAB PO SCH (10:00)
--- NOTE | 2022-11-12 10:46 | Hospitalist Progress Note ---
Date of Service November 12, 2022 Assessment & Plan (1) Chest pain: Plan: Patient is a 52 yr female who presents with chest pain, also nausea, vomiting, diarrhea. Chest Pain Likely due to hypertension, anxiety issues Chest/Abd X ray:No acute processes of the chest. Nonobstructive bowel gas pattern. EKG showed inferolateral ST-T wave changes Mild troponin elevation--likely demand ischemia secondary to hypotension -ECHO: Left ventricle systolic function is normal. EF 65 to 70%. Right ventricle systolic function is normal. Left atrial size is normal. Right atrial size is normal. Mild tricuspid regurgitation. -Dobutamine stress test: Normal pharmacologic stress echocardiogram. No echocardiographic or ECG evidence of myocardial ischemia having achieved heart rate adequate for diagnostic purposes. Received aspirin -Continue carvedilol, lisinopril for blood pressure management Appreciate cardiology input Prediabetes HbA1c 5.7 Hypokalemia Resolved Monitor Nausea, vomiting, diarrhea: Possible gastroenteritis Abdominal x-ray showed no signs of obstruction Currently asymptomatic Received gentle IV fluids We will obtain stool studies if recurrence of diarrhea Generalized anxiety disorder Started on BuSpar Abnormal thyroid function test Mild elevated TSH Normal free T4 Needs repeat thyroid function test as outpatient in 4-6 weeks DVT Px: SCDs for now CODE STATUS Full code Disposition Home Admission and Anticipated Discharge Date Admission Date: November 12, 2022 Subjective Patient is seen and examined at bedside Chest pain is better today Admits to have anxiety issues Discussed with patient's family Diarrhea resolved Denies any shortness of breath, dizziness, nausea, abdominal pain No other complaints Review of Systems Review of Systems: All systems reviewed & are unremarkable except as noted in Subjective Physical Exam Physical Exam: Physical Exam: Vitals signs as noted above General Appearance:Moderately built and nourished, no apparent distress Head: normocephalic, Atraumatic Eyes: normal inspection, EOMI Neck: supple, Trachea midline Respiratory/Chest: Normal breath sounds, CTA, No accessory muscle use Cardiovascular: S1, S2, No murmur Abdomen/GI:Soft, Non tender, Bowel sounds present Extremities/Musculoskeletal:normal inspection, no edema Neurologic/Psych:AAOX3, grossly no focal neurological deficits Skin: normal color, warm Results & Data Results & Data ([facility]) Vital Signs (Past 12 Hours) Vital Signs Temp Pulse Pulse Resp BP BP Pulse Ox 11/12/22 07:26 11/12/22 07:42 37.0 C 81 16 148/96 H 96 11/12/22 07:00 115 H 16 178/92 H 96 11/12/22 06:15 68 11 L 141/99 H 97 11/12/22 06:00 74 13 156/99 H 97 11/12/22 05:45 82 9 L 146/94 H 97 11/12/22 05:30 79 9 L 146/99 H 97 11/12/22 05:15 149/99 H 11/12/22 05:15 77 12 96 11/12/22 05:00 77 17 97 11/12/22 05:00 137/96 11/12/22 06:01 78 11/12/22 04:45 79 14 138/87 96 11/12/22 04:30 182/112 H 98 11/12/22 04:00 101 H 14 180/112 H 98 11/12/22 03:30 89 12 148/101 H 97 11/12/22 03:15 81 12 158/105 H 96 11/12/22 03:00 87 14 174/102 H 97 11/12/22 02:04 96 H 11/12/22 01:54 36.3 C L 116 H 18 188/103 H 96 Pulse Ox O2 Del Method O2 Del Method 11/12/22 07:26 96 Room Air 11/12/22 07:42 Room Air 11/12/22 07:00 11/12/22 06:15 11/12/22 06:00 11/12/22 05:45 11/12/22 05:30 11/12/22 05:15 11/12/22 05:15 11/12/22 05:00 11/12/22 05:00 11/12/22 06:01 11/12/22 04:45 11/12/22 04:30 11/12/22 04:00 11/12/22 03:30 11/12/22 03:15 11/12/22 03:00 11/12/22 02:04 11/12/22 01:54 Room Air Laboratory Results Short CBC 11/12/22 11/12/22 Range/Units 02:10 07:31 WBC 6.99 7.10 (4.8-10.8) K/ul Hgb 14.5 13.0 (12.0-16.0) g/dl Hct 42.4 38.8 (37.0-47.0) % Plt Count 319 317 (130-400) K/uL BMP 11/12/22 11/12/22 02:10 07:31 Sodium 137 138 Potassium 3.3 L 3.7 Chloride 103 107 Carbon Dioxide 23 25 BUN 11 8 Creatinine 0.77 0.68 Glucose 183 H 128 H Calcium 9.9 9.4 Liver Function 11/12/22 Range/Units 02:10 Total Bilirubin 0.8 (0.2-1.0) mg/dl AST 15 (13-39) U/L ALT 14 (7-52) U/L Alkaline Phosphatase 87 (34-104) U/L Albumin 4.9 (3.4-5.0) gm/dl
[2022-11-12] MEDS: DOBUTamine HCL 12.5 MG/ML 20 ML VIAL IV ONE ×2 (11:57→12:35)
[2022-11-12] MEDS: METOPROLOL TARTRATE 1 MG/ML VIAL IV ONE ×2 (11:57→12:36)
[2022-11-12] MEDS: ATROPINE SULFATE 0.1 MG/ML 10ML SYR IV ONE ×2 (11:57→12:35)
--- NOTE | 2022-11-12 14:04 | Discharge Summary ---
Date of Service November 12, 2022 Admission HPI Per Admitting Provider CHIEF COMPLAINT: Nausea and also chest pain. HISTORY OF PRESENT ILLNESS: A 52-year-old female with no significant past medical history who presents with chest pain going on since last 1 month. The chest pain comes in the morning when she wakes up, going to work, and by afternoon subsides and again some days also it comes in the nighttime. No radiation, pressure-like feeling, moderate in severity. No sweating, no s hortness of breath.Pain is associated with nausea. Last Wednesday night she had two to three episodes of diarrhea. Diarrhea seems to be improving. She still has some mild chest discomfort currently. Denies any headache. No blurred visions, no earache, no runny nose, no sore throat, no cough, no fevers, no difficulty swallowing. No abdominal pain. Normal bladder movements. No swelling in the legs. Admission Exam Per Admitting Provider PHYSICAL EXAMINATION: GENERAL: The patient is of moderate build, not in acute distress. VITAL SIGNS: Temperature 36.3, pulse 79, respiratory rate 14, blood pressure 138/87, when she came in blood pressure was 188/103, oxygen 96% on room air. HEENT: Pupils equal, round and reactive to light. Oral mucosa moist. NECK: No JVD. No neck masses. CARDIOVASCULAR: S1 and S2 heard. Regular rate and rhythm. No murmur, no gallop. RESPIRATORY SYSTEM: Normal AP diameter. No accessory muscle use. No wheezing or crackles. ABDOMEN: Soft, bowel sounds present, nontender, no distention. CENTRAL NERVOUS SYSTEM: Cranial nerves II through XII grossly intact, nonfocal. EXTREMITIES: No edema, no erythema. Principal Diagnosis Chest Pain Hypertension Anxiety disorder Hypokalemia Possible gastroenteritis Prediabetes Abnormal thyroid function test Discharge Data Allergies Allergy/AdvReac Type Severity Reaction Status Date / Time No Known Allergies Allergy Verified 11/12/22 02:10 Consultations 11/12/22 04:37 ED Decision to Admit Stat 11/12/22 08:00 Consult Cardiology Routine Procedures Performed Laboratory Results WBC 7.10 K/ul (4.8-10.8) 11/12/22 07:31 RBC 4.37 M/uL (4.20-5.40) 11/12/22 07:31 Hgb 13.0 g/dl (12.0-16.0) 11/12/22 07: Hct 38.8 % (37.0-47.0) 11/12/22 07: MCV 88.8 fL (80.0-100.0) 11/12/22 07: MCH 29.7 pg (25.0-34.0) 11/12/22 07: MCHC 33.5 g/dL (32.0-36.0) 11/12/22 07: RDW Std Deviation 40.0 fL (36.4-46.3) 11/12/22 07: RDW Coeff of David 12.3 % (11.5-14.5) 11/12/22 07: Plt Count 317 K/uL (130-400) 11/12/22 07: MPV 10.0 fL (9.4-12.4) 11/12/22 07: Immature Gran % (Auto) 0.3 % 11/12/22 07: Neut % (Auto) 78.6 % 11/12/22 07: Lymph % (Auto) 15.9 % 11/12/22 07:31 [place] % (Auto) 4.9 % 11/12/22 07:31 Eos % (Auto) 0.0 % 11/12/22 07: Baso % (Auto) 0.3 % 11/12/22 07: Neut # (Auto) 5.58 K/uL (1.40-6.50) 11/12/22 07: Lymph # (Auto) 1.13 K/uL (1.2-3.4) L 11/12/22 07: [place] # (Auto) 0.35 K/uL (0.11-0.59) 11/12/22 07:31 Eos # (Auto) 0.00 K/uL (0-0.50) 11/12/22 07: Baso # (Auto) 0.02 K/uL (0-0.2) 11/12/22 07: Immature Gran # (Auto) 0.02 K/uL (0.01-0.20) 11/12/22 07:31 Sodium 138 mmol/L (136-145) 11/12/22 07:31 Potassium 3.7 mmol/L (3.5-5.1) 11/12/22 07:31 Chloride 107 mmol/L (98-107) 11/12/22 07:31 Carbon Dioxide 25 mmol/L (21-32) 11/12/22 07:31 Anion Gap 6 (3-11) 11/12/22 07:31 BUN 8 mg/dl (6-23) 11/12/22 07:31 Creatinine 0.68 mg/dl (0.6-1.2) 11/12/22 07:31 Est Cr Clr Drug Dosing 87.7 ml/min 11/12/22 07:31 Est GFR ( Amer) 117.4 ml/min 11/12/22 07:31 Est GFR (Non-Af Amer) 101.3 ml/min 11/12/22 07:31 BUN/Creatinine Ratio 11.8 (10-20) 11/12/22 07:31 Glucose 128 mg/dl (70-99(Fasting)) H 11/12/22 07:31 Estimat Average Glucose 117 mg/dl 11/12/22 07:31 Hemoglobin A1c 5.7 % (4.5-5.6) H 11/12/22 07:31 Calcium 9.4 mg/dl (8.5-10.1) 11/12/22 07:31 Magnesium 2.2 mg/dl (1.7-2.4) 11/12/22 07:31 Total Bilirubin 0.8 mg/dl (0.2-1.0) 11/12/22 02:10 AST 15 U/L (13-39) 11/12/22 02:10 ALT 14 U/L (7-52) 11/12/22 02:10 Alkaline Phosphatase 87 U/L (34-104) 11/12/22 02:10 Troponin I High Sens 17.1 pg/ml (0-14) H 11/12/22 07:31 Total Protein 9.1 gm/dl (6.0-8.3) H 11/12/22 02:10 Albumin 4.9 gm/dl (3.4-5.0) 11/12/22 02:10 Globulin 4.2 gm/dl (2.5-4.0) H 11/12/22 02:10 Albumin/Globulin Ratio 1.2 (0.9-2) 11/12/22 02:10 Triglycerides 50 mg/dl (0-150) 11/12/22 07:31 Cholesterol 214 mg/dl (0-200) H 11/12/22 07:31 LDL Cholesterol, Calc 127 mg/dl 11/12/22 07:31 VLDL Cholesterol, Calc 10 mg/dl (0-30) 11/12/22 07:31 HDL Cholesterol 77 mg/dl 11/12/22 07:31 Cholesterol/HDL Ratio 2.8 (0-5) 11/12/22 07:31 Lipase 14 U/L (11-82) 11/12/22 02:10 TSH 5.507 uIu/ml (0.300-4.500) H 11/12/22 02:10 Free T4 0.88 ng/dl (0.61-1.60) 11/12/22 02:10 SARS-CoV-2 (PCR) NEGATIVE (Negative) 11/12/22 04:20 Influenza Type A (PCR) Negative (Neg) 11/12/22 04:20 Influenza Type B (PCR) Negative (Neg) 11/12/22 04:20 RSV (RT-PCR) Negative (Neg) 11/12/22 04:20 Impressions Chest/Abdomen X-ray 11/12/22 02:20 XR abdomen 2V w PA chest HISTORY: 52 years-old Female n/v, chest pain . Nodular and vomiting with chest pain COMPARISON: None TECHNIQUE: PA view of the chest with erect and supine views of the abdomen FINDINGS: Cardiomediastinal and hilar silhouettes are within normal limits. No pneumothorax, pleural effusion, airspace consolidation or pulmonary edema. Bones of the chest appear grossly intact. No urolith identified. Nonobstructive bowel gas pattern. No pneumatosis or pneumoperitoneum. IMPRESSION: 1. No acute processes of the chest. 2. Nonobstructive bowel gas pattern. ACT 112: Negative or not required by law. The above report was generated using voice recognition software. It may contain grammatical, syntax or spelling errors. Electronically signed by: Haris Gleason M.D. 11/12/2022 7:26 AM Hospital Course (1) Chest pain: Patient is a 52 yr female who presents with chest pain, also nausea, vomiting, diarrhea. Chest Pain Likely due to hypertension, anxiety issues Chest/Abd X ray:No acute processes of the chest. Nonobstructive bowel gas pattern. EKG showed inferolateral ST-T wave changes Mild troponin elevation--likely demand ischemia secondary to hypotension -ECHO: Left ventricle systolic function is normal. EF 65 to 70%. Right ventricle systolic function is normal. Left atrial size is normal. Right atrial size is normal. Mild tricuspid regurgitation. -Dobutamine stress test: Normal pharmacologic stress echocardiogram. No echocardiographic or ECG evidence of myocardial ischemia having achieved heart rate adequate for diagnostic purposes. Received aspirin -Continue carvedilol, lisinopril for blood pressure management Appreciate cardiology input Prediabetes HbA1c 5.7 Hypokalemia Resolved Monitor Nausea, vomiting, diarrhea: Possible gastroenteritis Abdominal x-ray showed no signs of obstruction Currently asymptomatic Received gentle IV fluids We will obtain stool studies if recurrence of diarrhea Generalized anxiety disorder Started on BuSpar Abnormal thyroid function test Mild elevated TSH Normal free T4 Needs repeat thyroid function test as outpatient in 4-6 weeks DVT Px: SCDs for now CODE STATUS Full code Disposition Home Total Time Total Time Spent Total Time Spent (In Minutes): 57 minutes Discharge Plan Discharge Items Patient Disposition: Home - Self-Care Reason For Visit: CHEST PAIN Discharge Diagnosis: Chest Pain Hypertension Anxiety disorder Hypokalemia Possible gastroenteritis Prediabetes Abnormal thyroid function test Activity: Per Instructions section Exercise/Sports: Wait until after follow-up appointment Non-emergency contact: Primary Care Provider Call non-emergency contact if: you have any medication questions, your symptoms worsen, your pain is concerning for you and you have a fever Follow-up/Referrals: PCP,NO [Primary Care Provider] - Diet: Heart Healthy Addtl Attending Provider Instructions: Follow-up with your primary care physician in 1 week as advised. --Monitor your blood pressure regularly at home. Discuss with your primary care physician for further adjustment of blood pressure medications as advised. --- You are incidentally found to have abnormal thyroid function tests. Recommend to get a repeat thyroid function test in 4 to 6 weeks and follow-up with PCP for further recommendations. Seek immediate medical attention if your symptoms reoccur or worsen Please take all medications as instructed on discharge list below. Please call if you have any questions or problems. You can reach a [facility] hospitalist on duty at [facility] 24 hours a day by calling [phone] Pending Studies at Discharge: No Stand-Alone Forms: My [facility] GreenNote, Smoking Cessation Medications and DC Order Prescriptions: New buspirone 5 mg Tablet 5 mg PO BID Qty: 60 0RF aspirin 81 mg Tablet,Delayed Release (Dr/Ec) 81 mg PO QAM Qty: 30 0RF carvedilol 3.125 mg Tablet 3.125 mg PO BID Qty: 60 1RF lisinopril [Zestril] 5 mg Tablet 5 mg PO QAM Qty: 30 1RF Continued ibuprofen [Motrin IB] 200 mg Tablet 400 mg PO DIRECTED PRN (Reason: Pain) Discharge Orders: Discharge Order (Routine); Ordered 11/12/22 Ordered By: Damon Larios Admission Data Admit Date/Time: 11/12/22 05:19 Attending Provider: Damon Larios Admit Provider: Yan Fountain Primary Care Provider: PCP,NO Other Providers: Yan Fountain ; Allie Callejas ; Maceil Duron ; Dwight Zavala ; Garrett Pena ; Ron Downs ; Doyle Metz ; Ej Amato ; Sasha Tobar ; Jessica Wilkerson ; Allie Bradshaw ; Brad Zuñiga
[2022-11-12] MEDS ORDERED: busPIRone 5 MG TAB PO SCH (21:00)
--- NOTE | 2022-11-13 04:55 | Electrocardiogram Report ---
Test Reason : Blood Pressure : / mmHG Vent. Rate : 098 BPM Atrial Rate : 098 BPM P-R Int : 150 ms QRS Dur : 090 ms QT Int : 352 ms P-R-T Axes : 055 007 031 degrees QTc Int : 449 ms Normal sinus rhythm Possible Left atrial enlargement Nonspecific ST and T wave abnormality Poor R wave progression, consider anterior [place] vs. lead placement vs. LVH No previous ECGs available Confirmed by Giovany Chiang ([id number]) on 11/13/2022 4:55:24 AM Referred By: REFERRED SELF Confirmed By:Giovany Chiang
--- NOTE | 2022-11-13 04:56 | Electrocardiogram Report ---
Test Reason : Blood Pressure : / mmHG Vent. Rate : 087 BPM Atrial Rate : 087 BPM P-R Int : 146 ms QRS Dur : 090 ms QT Int : 364 ms P-R-T Axes : 063 012 011 degrees QTc Int : 438 ms Poor data quality, interpretation may be adversely affected Normal sinus rhythm Possible Left atrial enlargement Low voltage QRS Nonspecific ST and T wave abnormality Abnormal ECG When compared with ECG of 12-NOV-2022 02:00, No significant change was found Confirmed by Giovany Chiang ([id number]) on 11/13/2022 4:56:08 AM Referred By: REFERRED SELF Confirmed By:Giovany Chiang
== END 2022-11-12 14:25 | disposition home or self-care (01) ==
LOC: ED 01:48 → 2W 01:48